=== PATIENT | male | born 1985 | race Caucasian/White ===

== ENCOUNTER 2019-10-09 18:16 | Emergency (ER) | payer BC ==
[~2019-10-09] VITALS: Ht 180.3 cm; Wt 77.6 kg
[2019-10-09 18:27] VITALS: Ht 180.3 cm; Wt 77.6 kg
[2019-10-09 19:11] VITALS: BP 137/96
== END 2019-10-09 19:11 | disposition home or self-care (01) ==
LOC: ED 18:16
DX: S71.111A Laceration without foreign body, right thigh, initial encounter (principal); W26.0XXA Contact with knife, initial encounter; Y93.89 Activity, other specified; Y92.89 Other specified places as the place of occurrence of the external cause; Y99.8 Other external cause status
CPT/HCPCS: 90715